=== PATIENT | female | born 1995 | race Caucasian/White ===

== ENCOUNTER 2018-08-03 09:36 | Outpatient (CLI) | payer OTHER | END 2018-08-03 13:30 | disposition home or self-care (01) | LOC: OBT 09:36 → L-D 09:36 → OBT 13:30 | DX: O36.8130 Decreased fetal movements, third trimester, not applicable or unspecified (principal); O34.219 Maternal care for unspecified type scar from previous cesarean delivery; Z3A.37 37 weeks gestation of pregnancy | CPT/HCPCS: 76815; 76818 ==

== ENCOUNTER 2018-08-16 15:47 | Inpatient (IN) | payer OTHER ==
[2018-08-16] MEDS ORDERED: OXYTOCIN 30 UNITS/LR 500 ML IV ×2 (16:30→20:33)
[2018-08-16] MEDS ORDERED: CARBOPROST 250 MCG INJ IM (16:30)
[2018-08-16] MEDS ORDERED: MISOPROSTOL 200 MCG TAB PR ×2 (16:30→19:30)
[2018-08-16 17:03] LABS: ADD MAN DIFF? NO
[2018-08-16 17:05] LABS: BASOPHILS % 0.3 % (0.0-2.0); EOSINOPHILS # 0.1 10^3/ul (0.0-0.5); EOSINOPHILS % 0.6 % (0.0-7.0); HEMATOCRIT 38.7 % (37.0-47.0); HEMOGLOBIN 12.7 g/dl (12.0-16.0); LYMPHOCYTES # 1.9 10^3/ul (0.8-2.9); LYMPHOCYTES % 17.8 % (15.0-51.0); MEAN CORPUSCULAR HEMOGLOBIN 27.4 pg (29.0-33.0); MEAN CORPUSCULAR HGB CONC 32.8 g/dl (32.0-37.0); MEAN CORPUSCULAR VOLUME 83.6 fl (82.0-101.0); MEAN PLATELET VOLUME 10.5 fl (7.4-10.4); MONOCYTE # 0.7 10^3/ul (0.3-0.9); MONOCYTES % 6.3 % (0.0-11.0); NEUTROPHIL # 8.1 10^3/ul (1.6-7.5); NEUTROPHILS % 74.5 % (39.0-77.0); PLATELET COUNT 278 10^3/UL (140-415); RED BLOOD COUNT 4.63 10^6/ul (4.20-5.40); RED CELL DISTRIBUTION WIDTH 14.1 % (11.5-14.5)
[2018-08-16 17:05] LABS: WHITE BLOOD COUNT 10.9 10^3/ul (4.8-10.8)
[2018-08-16] MEDS: LACTATED RINGER'S 1,000 ML IV ×2 (17:16→19:41)
[2018-08-16 17:25] LABS: INR 0.98; PROTIME 13.1 Sec (11.9-14.9)
[2018-08-16 17:26] LABS: PARTIAL THROMBOPLASTIN TIME 33.4 Sec (23.0-35.0)
[2018-08-16] MEDS ORDERED: FAMOTIDINE 20 MG INJ (19:26)
[2018-08-16] MEDS ORDERED: CITRIC ACID/NA CITRATE 30 ML CUP (19:26)
[2018-08-16] MEDS ORDERED: METOCLOPRAMIDE 10 MG INJ (19:26)
[2018-08-16] MEDS ORDERED: NA PHOSPHATE/BIPHOS 133 ML ENEMA PR (19:30)
[2018-08-16] MEDS: CITRIC ACID/NA CITRATE 30 ML CUP PO (19:38)
[2018-08-16] MEDS: FAMOTIDINE 20 MG INJ IV (19:38)
[2018-08-16] MEDS: METOCLOPRAMIDE 10 MG INJ IV (19:39)
[2018-08-16] MEDS ORDERED: morphine SULFATE/PF (10 MG/10 ML) INJ (20:33)
[2018-08-16] MEDS: CEFAZOLIN 2 GM/50 ML (PMX) 50 ML IVPB (20:35)
[2018-08-16] MEDS ORDERED: PHENYLephrine (100 MCG/ML) 5ML SYG ×2 (20:43→21:10)
[2018-08-16] MEDS ORDERED: MEPERIDINE 25 MG INJ IV (21:00)
[2018-08-16] MEDS ORDERED: DIPHENHYDRAMINE 50 MG INJ IV ×2 (21:00→22:00)
[2018-08-16] MEDS ORDERED: ONDANSETRON 4 MG INJ IV ×2 (21:00→22:00)
[2018-08-16] MEDS ORDERED: FENTAnyl 50 MCG/ML VIAL IV ×3 (21:00)
[2018-08-16] MEDS ORDERED: PROCHLORPERAZINE 10 MG INJ IV (21:00)
[2018-08-16] MEDS ORDERED: HYDROmorphONE 1 MG/5 ML IV SYRINGE IV ×2 (21:00)
[2018-08-16] MEDS ORDERED: ONDANSETRON 4 MG INJ (21:02)
[2018-08-16] MEDS ORDERED: MIDAZOLAM 1 MG/ML 2 ML INJ (21:08)
[2018-08-16] MEDS ORDERED: FENTAnyl 50 MCG/ML VIAL (21:10)
[2018-08-16] MEDS: OXYTOCIN 30 UNITS/LR 500 ML IV (21:47)
[2018-08-16] MEDS ORDERED: HYDROmorphONE 0.5 MG/0.5 ML SYG IV (22:00)
[2018-08-16] MEDS ORDERED: NALOXONE (0.4 MG/ML) INJ IV (22:00)
[2018-08-16] MEDS ORDERED: ZOLPIDEM 5 MG TAB PO (22:00)
[2018-08-16] MEDS: HYDROmorphONE 1 MG/5 ML IV SYRINGE IV ×2 (22:28→23:19)
[2018-08-16] MEDS: METHYLERGONOVINE 0.2 MG INJ IM (22:29)
[2018-08-17] MEDS: SENNA/DOCUSATE NA (8.6MG/50MG) TAB PO ×3 (00:37→21:18)
[2018-08-17] MEDS ORDERED: OXYTOCIN 30 UNITS/LR 500 ML IV (01:00)
[2018-08-17] MEDS: DIPHENHYDRAMINE 50 MG INJ IV (05:54)
[2018-08-17 07:59] LABS: ADD MAN DIFF? NO
[2018-08-17 08:05] LABS: BASOPHILS % 0.3 % (0.0-2.0); EOSINOPHILS % 0.1 % (0.0-7.0); HEMATOCRIT 34.6 % (37.0-47.0); HEMOGLOBIN 11.3 g/dl (12.0-16.0); LYMPHOCYTES # 1.8 10^3/ul (0.8-2.9); MEAN CORPUSCULAR HEMOGLOBIN 27.4 pg (29.0-33.0); MEAN CORPUSCULAR HGB CONC 32.7 g/dl (32.0-37.0); MEAN CORPUSCULAR VOLUME 83.8 fl (82.0-101.0); MEAN PLATELET VOLUME 10.6 fl (7.4-10.4); MONOCYTE # 0.7 10^3/ul (0.3-0.9); MONOCYTES % 5.7 % (0.0-11.0); NEUTROPHIL # 9.2 10^3/ul (1.6-7.5); NEUTROPHILS % 78.6 % (39.0-77.0); PLATELET COUNT 220 10^3/UL (140-415); RED BLOOD COUNT 4.13 10^6/ul (4.20-5.40); RED CELL DISTRIBUTION WIDTH 13.8 % (11.5-14.5)
[2018-08-17 08:05] LABS: WHITE BLOOD COUNT 11.7 10^3/ul (4.8-10.8)
[2018-08-17] MEDS: INFLUENZA VIRUS VACCINE 0.5 ML (DISPENSING) IM* (10:29)
[2018-08-17] MEDS: LACTATED RINGER'S 1,000 ML IV (12:13)
[2018-08-17] MEDS: LANOLIN 7 GM TUBE TOP (12:30)
[2018-08-17] MEDS: HYDROmorphONE 0.5 MG/0.5 ML SYG IV (16:32)
[2018-08-17 16:34] LABS: RAPID PLASMA REAGIN NONREACTIVE (NR)
[2018-08-17] MEDS: OXYCODONE/ACETAMINOPHEN (5/325) TAB PO (22:47)
[2018-08-18] MEDS: OXYCODONE/ACETAMINOPHEN (5/325) TAB PO ×4 (03:51→21:13)
[2018-08-18] MEDS: SENNA/DOCUSATE NA (8.6MG/50MG) TAB PO ×2 (08:32→21:13)
[2018-08-19] MEDS: OXYCODONE/ACETAMINOPHEN (5/325) TAB PO ×3 (03:16→15:07)
[2018-08-19] MEDS: SENNA/DOCUSATE NA (8.6MG/50MG) TAB PO (08:49)
[2018-08-19] MEDS: MEASLES,MUMPS,RUBELLA VACCINE INJ SC* (09:13)
[2018-08-19] MEDS: DIPHTH/TET/ACEL PERTUSS (ADULT) 0.5 ML VIAL IM* (11:01)
== END 2018-08-19 17:44 | disposition home or self-care (01) | DRG 788 ==
LOC: L-D 15:47 → PP1 23:49
PROVIDERS: Obstetrics & Gynecology
PROC: 10D00Z1 Extraction of Products of Conception, Low, Open Approach (ICD-10-PCS; principal; 2018-08-16)
DX: O34.219 Maternal care for unspecified type scar from previous cesarean delivery (principal); Z3A.39 39 weeks gestation of pregnancy; Z37.0 Single live birth; Z23 Encounter for immunization
CPT/HCPCS: 85025; 85610; 85730; 86592; 86850; 86900; 86901; 90686; 90715; 99464